=== PATIENT | female | born 1955 | race Two or more races ===

== ENCOUNTER 2016-10-02 16:53 | Emergency (ER) | payer BC, OTHER ==
[~2016-10-02] VITALS: Ht 160 cm; Wt 78.3 kg
[~2016-10-02 16:53] MED LIST: ACET-2158 PO; ASPI-781 PO; LEVO75TA5 PO; PANT40TA4 PO
[2016-10-02 16:54] VITALS: Ht 160 cm; Wt 78.3 kg
--- NOTE | 2016-10-02 17:24 | ERD ---
ER Documentation Chief Complaint Date/Time DATE: 10/02/16 Chief Complaint Left hand pain HPI The patient is a 61-year-old female who presents to the Emergency Department with complaint of left hand pain for the past 2 weeks. The patient reports that 2 weeks ago she accidentally pricked the dorsum of the left hand with a cactus. She was able to remove the thorns. However, since, she has developed increased swelling and pain over the second MCP. The pain is worse with flexion and extension of the second digit, and relieved at rest. The pain is sharp and shooting in nature, rated 5 out of 10 in intensity, and intermittently radiates up the left upper extremity. She denies any numbness, paresthesias or weakness of the distal extremity. Denies any restricted range of motion. Denies any erythema, warmth or drainage. Denies fevers, sweats, chills. Denies chest pain, palpitations or shortness of breath. The patient notes that she has been taking ibuprofen intermittently for pain relief, though has not taken any medication over the past 3 days. No other complaints at this time. ROS All systems reviewed and are negative except as per history of present illness. Medications Home Meds Active Scripts Cephalexin* (Keflex*) 500 Mg Capsule, 500 MG PO QID for 7 Days, CAP Prov:DEMETRIS STRINGER PA-C 10/02/16 Ibuprofen* (Motrin*) 600 Mg Tab, 600 MG PO Q6, #20 TAB Prov:DEMETRIS STRINGER PA-C 10/02/16 Pantoprazole (Protonix) 40 Mg Tabec, 40 MG PO DAILY@06, #20 Prov:ALBA FERRARA MD 02/23/14 Aspirin* (Ecotrin*) 325 Mg Tabec, 325 MG PO DAILY, #30 Prov:ALBA FERRARA MD 02/23/14 Acetaminophen (TYLENOL 325 MG TAB) 325 Mg Tab, 650 MG PO Q4H Y for PAIN AND OR ELEVATED TEMP, #20 TAB Prov:ALBA FERRARA MD 02/23/14 Reported Medications Levothyroxine Sodium* (Levothyroxine Sodium*) 75 Mcg Tablet, 75 MCG PO AC BREAKFAST, TAB 02/21/14 Allergies Allergies: Coded Allergies: No Known Allergy (Unverified , 02/23/14) PMhx/Soc History of Surgery: Yes (VARICOSE VEINS, TONSILS, NASLA POLYP) Anesthesia Reaction: No Hx Neurological Disorder: No Hx Respiratory Disorders: No Hx Cardiac Disorders: Yes (HIGH CHOLESTEROL, HTN) Hx Psychiatric Problems: Yes (ANXIETY) Hx Miscellaneous Medical Probl: Yes (THYROID) Hx Alcohol Use: No Hx Substance Use: No Hx Tobacco Use: No Physical Exam Vitals Vital Signs Date Time Temp Pulse Resp B/P Pulse Ox O2 Delivery O2 Flow Rate FiO2 10/02/16 16:54 98.1 82 20 138/85 99 Physical Exam Const: Well-developed, well-nourished, in no acute distress. Head: Normocephalic. Atraumatic. Eyes: Normal Conjunctiva ENT: Normal External Ears, Nose and Mouth. Neck: Supple. Resp: Clear to auscultation bilaterally Cardio: Regular rate and rhythm, no murmurs Skin: No petechiae or rashes. No skin tenting. No overlying skin changes. No ecchymosis. No puncture wounds. No erythema or warmth. No crepitus. Ext: Moving all extremities. Swelling and tenderness upon deep palpation over the dorsum of the left 2nd MCP. Pain with flexion and extension of the left index finger. No fusiform swelling. Negative [place] signs. No gross deformities. No warmth, erythema, lymphatic streaking. No crepitus. Distal pulses are palpable, 2+ bilaterally. Capillary refill is less than 2 seconds. Compartments are soft. Neur: Awake and alert. Motor and sensation grossly intact. Psych: Cooperative. Results 24 hrs Current Medications Medications (Trade) Dose Ordered Sig/Grupo Route PRN Reason Start Time Stop Time Status Last Admin Dose Admin Ibuprofen (Motrin) 600 mg ONCE ONCE PO 10/02/16 17:30 10/02/16 17:31 DC 10/02/16 17:22 Diphtheria/ Tetanus/Acell Pertussis (Adacel) 0.5 ml ONCE ONCE IM* 10/02/16 17:30 10/02/16 17:31 DC 10/02/16 17:34 Procedures/MDM Patient case reviewed and discussed with ED supervising physician, Dr. Barr, who evaluated the patient bedside as well. Agrees with management and plan. Recommends that the patient be discharged home with rx Keflex as prophylactic antibiotic therapy, and advised to performed warm compresses. As patient's overlying skin has no skin tenting, no puncture wounds, there is no indication for incision at this time. No foreign bodies palpated on examination or seen on imaging. Patient may have residual particles underneath the skin from the cactus puncture. DIAGNOSTIC TESTS AND INTERPRETATION: PROCEDURE: XR Hand. CLINICAL INDICATION: Trauma. Left hand pain. The patient touched a cactus 2 weeks ago. TECHNIQUE: Three views. Frontal, lateral, and oblique images of the right hand were obtained. COMPARISON: No prior studies are available for comparison. FINDINGS: There is no fracture or dislocation. There is soft tissue swelling overlying the metacarpals. Articular surfaces are intact. There is no lytic or blastic lesion. There is no radiopaque foreign body. IMPRESSION: 1. Soft tissue swelling overlying the metacarpals. 2. Otherwise unremarkable images of the right hand. 3. No radiopaque foreign body .Manuel Jc MD, MD Date Time Electronically viewed and signed by .Manuel Jc MD, on 10/02/2016 18:33 SPLINT APPLICATION: INDICATION: Pain over 2nd MCP LOCATION: Left upper extremity/index finger. TYPE OF SPLINT: Metal finger splint. NEUROVASCULAR EXAM: The patients extremity was neurovascularly intact prior to and status post splint placement. MEDICAL DECISION MAKING: This is a 61-year-old female presenting to the Emergency Department with pain and swelling over the second MCP 2 weeks status post prick with cactus. Patient is uncertain whether she has retained particles underneath the skin. She had minimal swelling over the second MCP, but otherwise no warmth, no erythema, no skin tenting. No puncture wounds were visualized. No drainage or bleeding. No lymphatic streaking. X-ray imaging was performed, which revealed no evidence of fracture, dislocation or subluxation. No foreign bodies noted. After rest and administration of ibuprofen, the patient reports no new complaints, and decreased pain. Her left index finger was immobilized with finger splint. Upon review and interpretation of the patient's presentation and overall ER course I believe the patient's symptoms and presentation is most consistent with left hand swelling, possibly secondary to underlying retained particles/ foreign body. However, given no puncture wounds, no abscess formation, no skin tenting, no palpable underlying foreign body, no indication for incision or procedure. No evidence of flexor tenosynovitis. At this time, the patient is in stable condition and therefore she can be discharged home with prescription for Keflex, as prophylaxis, and Ibuprofen, for pain, and given strict return precautions for signs of deteriorating or worsening condition. She is advised to perform warm compresses for symptomatic relief and as additional treatment. I recommended that she follow-up with her primary medical provider and a hand specialist (information provided) for reevaluation and further management and the next 1-2 days, or return to the ER sooner for any new or worsening symptoms. I shared my medical decision-making and plan with the patient at length and in great detail and she verbally understands and agrees with the plan for further observation and care as an outpatient. At the time of discharge all questions were answered. Departure Diagnosis: Primary Impression: Swelling of left hand Condition: Stable Patient Instructions: Foreign Body, Soft Tissue [Not Removed] Referrals: GERBER ARREDONDO MD [facility] Additional Instructions: Call your primary care doctor TOMORROW for an appointment during the next 1-2 days.See the doctor sooner or return here if your condition worsens before your appointment time. DEMETRIS STRINGER PA-C Oct 02, 2016 17:24
[2016-10-02] MEDS ORDERED: DIPHTH/TET/ACEL PERTUSS (ADULT) 0.5 ML VIAL IM* ONE (17:30)
[2016-10-02] MEDS ORDERED: IBUPROFEN 600 MG TAB PO ONE (17:30)
--- NOTE | 2016-10-02 18:34 | RADRPT ---
PROCEDURE: XR Hand. CLINICAL INDICATION: Trauma. Left hand pain. The patient touched a cactus 2 weeks ago. TECHNIQUE: Three views. Frontal, lateral, and oblique images of the right hand were obtained. COMPARISON: No prior studies are available for comparison. FINDINGS: There is no fracture or dislocation. There is soft tissue swelling overlying the metacarpals. Articular surfaces are intact. There is no lytic or blastic lesion. There is no radiopaque foreign body. IMPRESSION: 1. Soft tissue swelling overlying the metacarpals. 2. Otherwise unremarkable images of the right hand. 3. No radiopaque foreign body RPTAT: QQ .Manuel Jc MD, MD Date Time Electronically viewed and signed by .Manuel Jc MD, on 10/02/2016 18:33 .R/
[2016-10-02] MEDS ORDERED: IBUP-1542 PO (18:42)
[2016-10-02] MEDS ORDERED: CEPH-443 PO (18:42)
== END 2016-10-02 17:03 | disposition home or self-care (01) ==
LOC: FTE 16:53
DX: R22.32 Localized swelling, mass and lump, left upper limb (principal); I10 Essential (primary) hypertension; E03.9 Hypothyroidism, unspecified; Z23 Encounter for immunization; Z79.82 Long term (current) use of aspirin
CPT/HCPCS: 29130; 73130; 90715; Z7610; 90471

== ENCOUNTER 2016-10-04 14:40 | Emergency (ER) | payer OTHER ==
[~2016-10-04] VITALS: Ht 162.6 cm; Wt 64.0 kg
[~2016-10-04 14:40] MED LIST changes: +CEPH-443 PO; +IBUP-1542 PO
[2016-10-04 14:47] VITALS: Ht 162.6 cm; Wt 64.0 kg
[2016-10-04] MEDS ORDERED: HYDROmorphONE 1 MG/ML SYG IM STA (15:25)
[2016-10-04] MEDS ORDERED: ONDANSETRON (ODT) 4 MG TAB ODT STA (15:25)
[2016-10-04] MEDS ORDERED: HYDROCODONE/APAP (5/325) TAB PO ONE (16:00)
[2016-10-04] MEDS ORDERED: TRIMETHOPRIM/SULFAMETHOX (DS) TAB PO ONE (16:00)
[2016-10-04] MEDS ORDERED: SULF1TAB31 PO (16:47)
[2016-10-04] MEDS ORDERED: BEN25 PO (16:47)
[2016-10-04] MEDS ORDERED: HYDR-906 PO (16:49)
[2016-10-04] MEDS ORDERED: ONDANSETRON 4 MG INJ IM STA (17:34)
[2016-10-04 18:19] VITALS: BP 141/71; PULSE 71; RESP 18
--- NOTE | 2016-10-06 14:58 | ERD ---
DATE OF SERVICE: 10/04/2016 HISTORY OF PRESENT ILLNESS: This 61-year-old female comes in with her daughter for left hand pain a nd swelling that began 2 days ago when she touched a cactus that stuck with its needles. She was se en in the ER at that time and had an x-ray which showed no retained needles visualized on x-ray and no bony abnormalities, only soft tissue swelling. She still has about that amount of soft tissue sw elling. She states that they gave her ibuprofen for pain which helps but does not completely allevi ate the pain. There has been no noticeable spread of swelling since that time. REVIEW OF SYSTEMS: A 10-point review of systems negative except as in the HPI. PAST MEDICAL HISTORY: Denies. PAST SURGICAL HISTORY: Denies. FAMILY HISTORY: Noncontributory. SOCIAL HISTORY: Denies tobacco, alcohol or other drugs. PHYSICAL EXAMINATION: VITAL SIGNS: Temperature 98, pulse 81, blood pressure 123/75, respirations 18, oxygen saturation 98 % on room air. GENERAL: No acute distress. EXTREMITIES: Left hand with mild dorsal swelling with very minimal proximal finger swelling. There is no erythema, but there is mild Calor to the hand. There is no visible tracking of erythema or s welling beyond the wrist. There are no visible puncture wounds. EMERGENCY DEPARTMENT COURSE AND MEDICAL DECISION MAKING: Dilaudid ____ mg and 4 mg Zofran ODT tab w ere ordered by the other physician while I was attending to a code. ____ to completely resolve this patient's pain, which did cause some dizziness and nausea. I gave an additional 4 mg of Zofran IM, the patient was observed for a time. I also reviewed her EMR, saw that she was given Keflex only. In case there is some sort of a seated infection from the cactus, I am writing Bactrim to prevent p ossible infection for MRSA and for any extension of it. It is possible that there is some allergic component to the cactus quills, so I am going to give the patient Benadryl 25 mg to be taken at [facility]. Also giving follow up to the [facility] if the patient continues to experience pain. I am adding [place] to her pain regimen for any severe pain that she might feel and instructed her t o take ibuprofen as directed. The patient has no motor dysfunction. There is no appearance of any serious bacterial infection at this time. I have given her return precautions to this ER as well. DISCHARGE DIAGNOSES: 1. Left hand swelling. 2. Cellulitis. DISPOSITION: Home in stable condition. Dictated By: LEX MANN/JAIDA Conf#: [id number] DID#: [id number]
== END 2016-10-04 18:20 | disposition home or self-care (01) ==
LOC: FTE 14:40
DX: M79.89 Other specified soft tissue disorders (principal); L03.114 Cellulitis of left upper limb
CPT/HCPCS: J1170; J2405; Z7610; 96372